=== PATIENT | male | born 1980 ===

== ENCOUNTER 2021-05-01 22:14 | Emergency (ER) | payer OTHER ==
[~2021-05-01] VITALS: Ht 177.8 cm; Wt 94.8 kg
[2021-05-01] MEDS: IV NORMAL SALINE 1000 ML BAG IV ONE ×2 (00:01→23:15)
[2021-05-01] MEDS ORDERED: MECLIZINE HCL 25 MG TABLET PO ONE (23:15)
[2021-05-01] MEDS ORDERED: ONDANSETRON 4 MG/2 ML VIAL IV ONE (23:15)
[2021-05-01] MEDS ORDERED: MECLIZINE HCL 25 MG TABLET ONE (23:20)
[2021-05-01] MEDS ORDERED: ONDANSETRON 4 MG/2 ML VIAL ONE (23:20)
[2021-05-01 23:22] LABS: MEAN CORPUSCULAR HEMOGLOBIN 28.3 uug (23.8-33.4); MEAN CORPUSCULAR VOLUME 83.6 fL (73.0-96.2); PLATELET COUNT (AUTO) 271 K/uL (152-348)
[2021-05-01 23:25] LABS: CREATININE 1.3 mg/dL (0.6-1.3); POTASSIUM 3.7 mmol/L (3.5-5.1)
--- NOTE | 2021-05-01 23:30 | NUR ---
PT IS IN ROOM #1B. DR PRATHER EVALUATED THE PT.
--- NOTE | 2021-05-02 00:50 | NUR ---
Rolando roman in [facility] - 05/02/21 at [id number] PRATHER INTO RE EVAL PATIENT WITH FATHER AT BEDSIDE.
--- NOTE | 2021-05-02 01:06 | NUR ---
PATIENT EATTING MEAL WITH NO DISTRESS NOTED.
--- NOTE | 2021-05-02 01:45 | NUR ---
DR PRATHER USING [email or web address] PHONE WITH [employer] #[id number].
[2021-05-02] MEDS ORDERED: METOCLOPRAMIDE HCL 10 MG/2 ML VIAL IV ONE (03:00)
[2021-05-02] MEDS ORDERED: diphenhydrAMINE 50 MG/1 ML VIAL IV ONE (03:00)
[2021-05-02] MEDS ORDERED: IV NS 1000 ML 1,000 ML IV ONE (03:00)
[2021-05-02] MEDS ORDERED: KETOROLAC TROMETHAMINE 30 MG INJ IVP ONE (03:00)
[2021-05-02] MEDS ORDERED: KETOROLAC TROMETHAMINE 30 MG INJ ONE (03:10)
[2021-05-02] MEDS ORDERED: diphenhydrAMINE 50 MG/1 ML VIAL ONE (03:10)
[2021-05-02] MEDS ORDERED: METOCLOPRAMIDE HCL 10 MG/2 ML VIAL ONE (03:11)
[2021-05-02] MEDS ORDERED: METO-295 PO (03:46)
[2021-05-02] MEDS ORDERED: DIPH25CA83 PO (03:46)
[2021-05-02] MEDS ORDERED: NAPR-1009 PO (03:46)
--- NOTE | 2021-05-02 04:49 | NUR ---
IV removed. Catheter intact and site benign. Pressure and 4x4 gauze applied to site. No bleeding noted.
[2021-05-02 05:02] VITALS: BP 115/78
--- NOTE | 2021-05-02 05:02 | NUR ---
Patient discharged to home in stable condition with [employer] taking patient home. Written and verbal after care instructions given. Patient verbalizes understanding of instructions. Stressed follow up or return to ER for worsening s/s.
== END 2021-05-02 05:03 | disposition home or self-care (01) ==
LOC: ER 22:14
DX: G43.109 Migraine with aura, not intractable, without status migrainosus (principal); R94.31 Abnormal electrocardiogram [ECG] [EKG]
CPT/HCPCS: 36415; 70450; 80048; 83605; 85025; 85651; 85730; 93005; 96361 ×2; 96374; 96375; 99285; J1200; J1885; J2405; J2765; A4663; J7030; J8597